=== PATIENT | male | born 1955 | race Two or more races ===

== ENCOUNTER 2019-08-16 05:17 | Inpatient (IN) | payer MEDICAID ==
[~2019-08-16] VITALS: Ht 172.7 cm; Wt 82.4 kg
[2019-08-16 06:50] LABS: Basophils # (auto) 0 uL; Basophils % (auto) 0.3 % (0.0-2.0); Eosinophils # (auto) 0.2 uL; Eosinophils % (auto) 2.7 % (0.0-7.0); Hematocrit 47.5 % (41.0-53.0); Hemoglobin 15.9 g/dL (13.5-17.5); Lymphocytes # (auto) 1.1 uL; Lymphocytes % (auto) 19.9 % (10.0-50.0); Mean Corpuscular Hemoglobin 29.6 pg (28.0-32.0); Mean Corpuscular Hgb Conc. 33.4 g/dL (32.0-36.0); Mean Corpuscular Volume 88.5 fL (80.0-100.0); Monocytes # (auto) 0.5 uL; Monocytes % (auto) 8.7 % (0.0-12.0); Neutrophils # (auto) 3.9 uL; Neutrophils % (auto) 68.4 % (37.0-80.0); Nucleated Red Blood Cells % 0.1 %; Platelet Count (auto) 175 10^3/uL (140-450); Red Blood Cells 5.37 10^6/uL (4.5-5.90); White Blood Cell 5.7 10^3/uL (4.4-10.8)
[2019-08-16 07:05] LABS: Alanine Aminotransferase 22 U/L (16-61); Albumin 2.7 g/dL (3.4-5.0); Anion Gap 4 (5-15); Aspartate Aminotransferase 16 U/L (15-37); BUN/Creatinine Ratio 15.5; Blood Urea Nitrogen 30 mg/dL (7-18); Calcium 7.3 mg/dL (8.5-10.1); Carbon Dioxide 28 mmol/L (21-32); Chloride 106 mmol/L (98-107); GFR African American 45 mL/min; GFR Non-African American 37 mL/min; Glucose 97 mg/dL (74-106); Potassium 4.3 mmol/L (3.5-5.1); Sodium 138 mmol/L (136-145)
[2019-08-16 07:10] LABS: Alkaline Phosphatase 91 U/L (45-117); Bilirubin, Total 0.4 mg/dL (0.2-1.0); Total Protein 6.5 g/dL (6.4-8.2)
[2019-08-16] MEDS ORDERED: PROMETHAZINE HCL 25 MG/ML 1ML IV ONE (09:15)
[2019-08-16] MEDS ORDERED: MORPHINE SULF INJ 2 MG/ML SYRINGE 1ML IV ONE (09:15)
[2019-08-16] MEDS ORDERED: MORPHINE SULF INJ 2 MG/ML SYRINGE 1ML IV PRN (12:30)
[2019-08-16] MEDS ORDERED: PROMETHAZINE HCL 25 MG/ML 1ML IV PRN (12:30)
[2019-08-16] MEDS ORDERED: LACTULOSE 20Gm/30ML SOLN PO PRN (12:30)
[2019-08-16] MEDS ORDERED: ACETAMINOPHEN 500 MG TAB PO PRN (12:30)
[2019-08-16] MEDS ORDERED: NITROGLYCERIN 0.4 MG SL TAB SL PRN (12:30)
[2019-08-16] MEDS ORDERED: TEMAZEPAM 15 MG CAP PO PRN (12:30)
[2019-08-16] MEDS: SODIUM CHLORIDE 0.9% 1,000 ML IV SCH (12:59)
[2019-08-16] MEDS: HYDROcodone-ACET 5/325MG TAB PO PRN ×2 (13:07→19:39)
[2019-08-16 13:30] LABS: Urine Bacteria NONE SEEN /hpf (None Seen); Urine Blood Negative /uL (Negative); Urine Specific Gravity 1.011 (1.001-1.035); Urine WBC <1 /hpf (0 - 3)
--- NOTE | 2019-08-16 14:20 | NUR ---
Telemetry admit from [facility] admitted to Telemetry unit after SBAR received. Patient oriented to CECILY frankel RN, unit, room, bed, and unit policies regarding patient care and visiting hours. Patient is A&Ox4, no signs or symptoms of distress. Patient now on continuous telemetry monitoring, tele box # 15 and telemetry reading on arrival to unit is Afib in the 70's. Patient weighed by bedscale and encouraged to call if they need something. Patient educated on POC and use of the call light. All questions and concerns addressed, patient verbalized understanding. The patient's call light is within reach and bed is in the lowest, locked position. Will round hourly and continue to monitor.
[2019-08-16] MEDS: MORPHINE SULFATE 4 MG/ML SYR/VIAL IV PRN ×2 (15:30→22:15)
--- NOTE | 2019-08-16 15:49 | NUR ---
IV insertion/IV removal IV left AC, DC'd with clean sterile technique, catheter fully intact. Pressure dressing applied to site. Patient tolerated well. IV access obtained, via clean sterile technique by inserting 20 gauge catheter at right forearm after 1 attempt. IV secured properly. No trauma to site. Patient tolerated well.
[2019-08-16] MEDS: ATORVASTATIN 20 MG TAB PO SCH (21:44)
[2019-08-16] MEDS: METOPROLOL TARTRATE 25 MG TAB PO SCH (21:45)
[2019-08-16] MEDS: ENOXAPARIN SOD 80 MG/0.8ML SYRINGE SC SCH (21:46)
[2019-08-16] MEDS: MORPHINE SULF 15mg ER tab PO SCH (21:46)
[2019-08-16 21:51] VITALS: BP 128/92
[2019-08-17] MEDS: SODIUM CHLORIDE 0.9% 1,000 ML IV SCH ×2 (01:29→16:07)
[2019-08-17 04:46] VITALS: BP 129/85
--- NOTE | 2019-08-17 07:00 | NUR ---
OPENING SHIFT NOTE ASSUMED CARE OF THE PATIENT FROM THE BUSINESS ANALYSIS SPECIALIST RN. THE PATIENT IS A&OX4, NO SIGNS OR SYMPTOMS OF DISTRESS. EDUCATED THE PATIENT ON PATIENT ON POC AND PATIENT VERBALIZED UNDERSTANDING. THE PATIENT'S CALL LIGHT IS WITHIN REACH AND BED IS IN THE LOWEST, LOCKED POSITION. WILL ROUND HOURLY AND CONTINUE TO MONITOR.
[2019-08-17 08:00] VITALS: BP 138/89
[2019-08-17] MEDS: MORPHINE SULFATE 4 MG/ML SYR/VIAL IV PRN ×3 (08:44→19:44)
[2019-08-17] MEDS: METOPROLOL TARTRATE 25 MG TAB PO SCH ×2 (08:46→21:39)
[2019-08-17] MEDS: MORPHINE SULF 15mg ER tab PO SCH ×2 (08:46→21:33)
[2019-08-17] MEDS: ASPirin 81 mg TAB PO SCH (08:46)
[2019-08-17] MEDS: NITROGLYCERIN 0.2MG/HR TOPICAL PATCH TD SCH (08:47)
[2019-08-17] MEDS: PANTOPRAZOLE 40 MG TAB PO SCH (08:47)
[2019-08-17] MEDS: ENOXAPARIN SOD 80 MG/0.8ML SYRINGE SC SCH ×2 (08:47→21:33)
[2019-08-17 09:00] VITALS: BP 138/89
[2019-08-17 13:00] VITALS: BP 145/94
[2019-08-17 17:00] VITALS: BP 156/93
--- NOTE | 2019-08-17 19:00 | NUR ---
Opening Shift Note Assumed care of patient, awake and alert. No S/S of distress/SOB or pain. Instructed on POC and to call for assist PRN, will continue to monitor for changes Q1hr and PRN.
[2019-08-17] MEDS: ATORVASTATIN 20 MG TAB PO SCH (21:33)
[2019-08-17 22:00] VITALS: BP 140/111
--- NOTE | 2019-08-17 23:00 | NUR ---
Clemencia Mandujano at patient bedside. Patient updated on plan of care. Patient verbalized understanding and in agreement. New orders placed by .
[2019-08-17] MEDS ORDERED: HYDR-4833 PO (23:13)
[2019-08-17] MEDS ORDERED: METOPROLOL TARTRATE 25 MG TAB PO ONE (23:45)
[2019-08-17] MEDS ORDERED: WARF7.5T PO (23:58)
[2019-08-17] MEDS ORDERED: WARF5TAB PO (23:58)
[2019-08-18] MEDS: MORPHINE SULFATE 4 MG/ML SYR/VIAL IV PRN (04:33)
[2019-08-18] MEDS: SODIUM CHLORIDE 0.9% 1,000 ML IV SCH (04:33)
[2019-08-18 05:00] VITALS: BP 151/108
[2019-08-18 05:59] LABS: Basophils # (auto) 0.1 uL; Basophils % (auto) 0.9 % (0.0-2.0); Eosinophils # (auto) 0.1 uL; Eosinophils % (auto) 2.3 % (0.0-7.0); Hematocrit 49.1 % (41.0-53.0); Hemoglobin 16.9 g/dL (13.5-17.5); Lymphocytes # (auto) 1.7 uL; Lymphocytes % (auto) 30.4 % (10.0-50.0); Mean Corpuscular Hemoglobin 29.5 pg (28.0-32.0); Mean Corpuscular Hgb Conc. 34.4 g/dL (32.0-36.0); Mean Corpuscular Volume 85.9 fL (80.0-100.0); Monocytes # (auto) 0.5 uL; Monocytes % (auto) 8.4 % (0.0-12.0); Neutrophils # (auto) 3.3 uL; Nucleated Red Blood Cells % 0.5 %; Platelet Count (auto) 211 10^3/uL (140-450); Red Blood Cells 5.72 10^6/uL (4.5-5.90); Red Cell Distribution Width 14.8 % (11.8-14.3); White Blood Cell 5.7 10^3/uL (4.4-10.8)
[2019-08-18 06:25] LABS: BUN/Creatinine Ratio 13.9; Calcium 8.6 mg/dL (8.5-10.1); Potassium 4.7 mmol/L (3.5-5.1)
[2019-08-18 09:00] VITALS: BP 143/90
[2019-08-18 09:19] LABS: Protein, Urine 160.1 mg/dL (0.0-11.9)
[2019-08-18] MEDS ORDERED: METOPROLOL TARTRATE 25 MG TAB PO SCH (10:00)
[2019-08-18] MEDS: ASPirin 81 mg TAB PO SCH (10:30)
[2019-08-18] MEDS: MORPHINE SULF 15mg ER tab PO SCH (10:31)
[2019-08-18] MEDS: PANTOPRAZOLE 40 MG TAB PO SCH (10:32)
[2019-08-18] MEDS: ENOXAPARIN SOD 80 MG/0.8ML SYRINGE SC SCH (10:32)
[2019-08-18] MEDS: NITROGLYCERIN 0.2MG/HR TOPICAL PATCH TD SCH (10:33)
--- NOTE | 2019-08-18 11:30 | NUR ---
Patient upset Patient had a CT this morning. When he came back he was saying he didn't want his medication, he just wanted to leave AMA. This nurse explained the importance of the tests they are running and why they are doing them. Apologized that he had to go through that and that the staff did not explain what was going on. The medications were explained and the patient agreed to take them this morning as well. The patient calmed down after this and did not leave AMA. He kept saying that they didn't explain anything to him and he put his hand over his face saying they told him not to move. This was confusing and this nurse called down to Radiology. They couldn't understand it either and one staff member stated he was outgoing and talking to everyone and seemed very happy. One of the radiology staff that helped him during the CT came up and talked to him. After some conversation, it was established that after the CT they took him over for a VQ scan and this is were they put a mask on his face and didn't thoroughly explain everything to him. Waiting for MD to discuss the plan of care with the patient and review the tests that were done once they have resulted.
--- NOTE | 2019-08-18 11:33 | NUR ---
Nutrition Assessment Notes please see attached link for complete assessment Est. Needs based on BW (82 kg): 4368-6441 kcal (23-25 kcal/kgBW), 65-82 gms pro (0.8-1.0 gms/kgBW r/t elev RFT CKD). Will continue to monitor pertinent labs and reassess nutrient need prn Addendum: 08/18/19 at [address] Amended: Links added.
[2019-08-18 12:19] VITALS: BP 138/71
--- NOTE | 2019-08-18 15:07 | NUR ---
AMA Patient again stated he wanted to leave [facility]. This nurse discussed with him that we are waiting for the doctor to review the testing that was done this morning. He said that they already told him he doesn't have a blood clot. It was explained earlier that his labs showing kidney function are high. He again stated he doesn't want to stay and wants to leave [facility].
--- NOTE | 2019-08-18 15:26 | NUR ---
AMA/Notified MD This nurse called and left a message for Dr. Araseli Caruso regarding the patient leaving AMA. Notified MD that this nurse informed the patient of the risks and that his kidney function is high and the doctor needs to go over the test results with him, but that he still refuses to stay. Iv removed. ID band removed. AMA form signed and placed in chart. Patient calling family for a ride home.
--- NOTE | 2019-08-18 15:59 | NUR ---
Patient left Patient left facility with all personal belongings.
== END 2019-08-18 15:15 | disposition left against medical advice (07) | DRG 469 ==
LOC: ER 05:17 → TELE 05:18 → TELE-EAST 14:30
PROVIDERS: ADMIT Internal Medicine; ATTEND Internal Medicine
DX: N17.9 Acute kidney failure, unspecified (principal); E44.0 Moderate protein-calorie malnutrition; I48.20 Chronic atrial fibrillation, unspecified; F11.20 Opioid dependence, uncomplicated; E78.5 Hyperlipidemia, unspecified; N18.3 Chronic kidney disease, stage 3 (moderate); M54.9 Dorsalgia, unspecified; R07.89 Other chest pain; G89.4 Chronic pain syndrome; I12.9 Hypertensive chronic kidney disease with stage 1 through stage 4 chronic kidney disease, or unspecified chronic kidney disease; F12.90 Cannabis use, unspecified, uncomplicated; Z82.49 Family history of ischemic heart disease and other diseases of the circulatory system; Z68.27 Body mass index [BMI] 27.0-27.9, adult; Z90.49 Acquired absence of other specified parts of digestive tract; Z53.29 Procedure and treatment not carried out because of patient's decision for other reasons
CPT/HCPCS: 36415; 71045; 74176; 76775; 80048; 80053; 81001; 82550; 82570; 84156; 84166; 84484; 85025; 85379; 93005; 96361; 96374; 96375; G0378